=== PATIENT | female | born 1945 | race Caucasian/White ===

== ENCOUNTER 2016-10-12 23:42 | Emergency (ER) | payer OTHER ==
[2016-10-12 23:56] VITALS: BP 154/70; PULSE 87; TEMP 98.2; BMI 27.3
[2016-10-12] MEDS ORDERED: ONDANSETRON 4 MG/2 ML VIAL IVPB STA (23:56)
--- NOTE | 2016-10-12 23:56 | PDOC ---
History of Present Illness - History of Present Illness Initial Comments: 10/13/16 00:06 The patient is a 71 year old female with a past medical hx of breast cancer, left mastectomy (2013), hyperlipidemia, HTN, diabetes (insulin dependent), vertigo who presents to the ED complaining of nausea, headache, and dizziness for the past 10 days. The patients family states she saw her PCP for her symptoms and was given medication for her nausea and was referred to an ENT. The family notes she saw Dr. Newton today at his office. The patients family reports she had a tilt table test and her headache immediately worsened. The patient denies any vomiting, chest pain, SOB The patient denies any dysuria, fever, chills Social: No toxic habits reported Surgical: Mastectomy (2013) PCP: Dr. Arauz ENT: Dr. Newton <Rosalia Davis - Last Filed: 10/13/16 01:45> <Humera Garcia - Last Filed: 10/13/16 02:17> - General Chief Complaint: Weakness Stated Complaint: WEAKNESS Time Seen by Provider: 10/12/16 23:48 Past History <Rosalia Davis - Last Filed: 10/13/16 01:45> - Past Medical History Anemia: No Asthma: No Cancer: No Cardiac Disorders: No CVA: Yes ("TRANSIENT NUMBNESS RUE") COPD: No CHF: No Dementia: No Diabetes: Yes GI Disorders: No Disorders: No HTN: Yes Hypercholesterolemia: Yes Liver Disease: No Seizures: No Thyroid Disease: No - Surgical History Abdominal Surgery: No Appendectomy: No Cardiac Surgery: No Cholecystectomy: No Lung Surgery: No Neurologic Surgery: No Orthopedic Surgery: No - Psycho/Social/Smoking Cessation Hx Suicidal Ideation: No Smoking History: Never smoked Hx Alcohol Use: No Drug/Substance Use Hx: No Substance Use Type: None Hx Substance Use Treatment: No <Humera Garcia - Last Filed: 10/13/16 02:17> - Past Medical History Allergies/Adverse Reactions: Allergies Allergy/AdvReac Type Severity Reaction Status Date / Time Penicillins Allergy Severe Verified 08/01/14 12:56 Home Medications: Ambulatory Orders Amlodipine Bes/Olmesartan Med [Prakash 10-40 mg Tablet] 1 each PO DAILY 08/02/14 Aspirin [Aspirin EC] 81 mg PO DAILY 08/02/14 Atorvastatin Ca [Lipitor -] 20 mg PO HS 08/02/14 Dapagliflozin Propanediol [Farxiga] 5 mg PO DAILY 08/02/14 Furosemide [Lasix -] 20 mg PO DAILY 08/02/14 Insulin Lispro [Humalog] 25 unit SQ 08/02/14 Levothyroxine [Synthroid -] 25 mcg PO DAILY 08/02/14 Ranolazine [Ranexa] 500 mg PO DAILY 08/02/14 Review of Systems - Review of Systems Able to Perform ROS?: Yes Comments:: 10/13/16 00:07 CONSTITUTIONAL: Absent: fever, chills, diaphoresis, generalized weakness, malaise, loss of appetite HEENT: Absent: rhinorrhea, nasal congestion, throat pain, throat swelling, difficulty swallowing, mouth swelling, ear pain, eye pain, visual Changes CARDIOVASCULAR: Absent: chest pain, syncope, palpitations, irregular heart rate, lightheadedness , peripheral edema RESPIRATORY: Absent: cough, shortness of breath, dyspnea with exertion, orthopnea, wheezing, stridor, hemoptysis GASTROINTESTINAL: +Nausea. Absent: abdominal pain, abdominal distension, vomiting, diarrhea, constipation, melena, hematochezia GENITOURINARY: Absent: dysuria, frequency, urgency, hesitancy, hematuria, flank pain, genital pain MUSCULOSKELETAL: Absent: myalgia, arthralgia, joint swelling SKIN: Absent: rash, itching, pallor NEUROLOGIC: +Headache, dizziness. Absent: focal weakness or paresthesias, unsteady gait, seizure, mental status changes, bladder or bowel incontinence PSYCHIATRIC: Absent: anxiety, depression, suicidal or homicidal ideation, hallucinations. <Rosalia Davis - Last Filed: 10/13/16 01:45> *Physical Exam - Vital Signs Last Vital Signs Temp Pulse Resp BP Pulse Ox 98.2 F 87 18 154/70 95 10/12/16 23:53 10/12/16 23:53 10/12/16 23:53 10/12/16 23:53 10/12/16 23:53 - Physical Exam Comments: 10/13/16 00:08 GENERAL: Well developed, well nourished. Awake and alert. No acute distress. HEENT: Normocephalic, atraumatic. PERRLA, EOMI. No conjunctival pallor. Sclera are non- icteric. Moist mucous membranes. Oropharynx is clear. NECK: Supple. Full ROM. No JVD. Carotid pulses 2+ and symmetric, without bruits. No thyromegaly. No lymphadenopathy. CARDIOVASCULAR: Regular rate and rhythm. No murmurs, rubs, or gallops. Distal pulses are 2+ and symmetric. PULMONARY: +Good air movement. No evidence of respiratory distress. Lungs clear to auscultation bilaterally. No wheezing, rales or rhonchi. ABDOMINAL: Soft. Non-tender. Non-distended. No rebound or guarding. No organomegaly. Normoactive bowel sounds. MUSCULOSKELETAL Normal range of motion at all joints. No bony deformities or tenderness. No CVA tenderness. EXTREMITIES: +Bilateral lower extremity pitting edema. No cyanosis. No clubbing. No calf tenderness. SKIN: Warm and dry. Normal capillary refill. No rashes. No jaundice. NEUROLOGICAL: Alert, awake, appropriate. Cranial nerves 2-12 intact. No deficits to light touch and temperature in face, upper extremities and lower extremities. No motor deficits in the in face, upper extremities and lower extremities. PSYCHIATRIC: Cooperative. Good eye contact. Appropriate mood and affect. <Rosalia Davis - Last Filed: 10/13/16 01:45> - Vital Signs Last Vital Signs Temp Pulse Resp BP Pulse Ox 98.2 F 87 18 154/70 95 10/12/16 23:53 10/12/16 23:53 10/12/16 23:53 10/12/16 23:53 10/12/16 23:53 <Humera Garcia - Last Filed: 10/13/16 02:17> Heart Score/ECG Review - ECG Impressions Comment:: 10/13/16 01:33 EKG Sinus rhythm at a rate of 60 BPM with 1st degree AV block Low voltage QRS No change from prior <Rosalia Davis - Last Filed: 10/13/16 01:45> ED Treatment Course - LABORATORY CBC & Chemistry Diagram: 10/13/16 00:30 10/13/16 00:30 - RADIOLOGY Radiograph Interpretation: 10/13/16 01:45 EXAM: CT of the brain without contrast. There is no intra/extra-axial hemorrhage, vasogenic edema/focal mass effect or CT evidence of acute infarction; mild white matter presumed microvascular disease changes. No ventriculomegaly. The visualized portions of the paranasal sinuses, orbits and tympanomastoid cavities are unremarkable. Impression: no hemorrhage, gross acute infarct or mass. THIS DOCUMENT HAS BEEN ELECTRONICALLY SIGNED Edin Jordan MD 10/13/2016 01:07 EST <Rosalia Davis - Last Filed: 10/13/16 01:45> - LABORATORY CBC & Chemistry Diagram: 10/13/16 00:30 10/13/16 00:30 <Humera Garcia - Last Filed: 10/13/16 02:17> Medical Decision Making - Medical Decision Making 10/13/16 01:35 71 yo female came in w family because of increased occipital headache and vertigo. She has had these symptoms for 10 days but after having a tilt table teat today at the ENT office Dr Newton ,her NUNN became worse. she has a h/o vertigo and has taken meclizine before -she denies any facial droop.slurred speech,extremity numbness or visual changes ct scan head no acute intracranial pathology ekg is nsr @ 60 bpm with 1st degree AV block ,low voltage. No changes since her previous ekg on aug 02, 2014 pt has no fever,chills,chest pain,vomiting,visual changes,abd pain <Humera Garcia - Last Filed: 10/13/16 02:17> *DC/Admit/Observation/Transfer - Attestations Scribe Attestion: 10/13/16 00:09 Documentation prepared by Rosalia Davis, acting as medical concierge for Humera Garcia MD/DO. <Rosalia Davis - Last Filed: 10/13/16 01:45> <Humera Garcia - Last Filed: 10/13/16 02:17> Diagnosis at time of Disposition: Vertigo Headache Qualifiers: Headache type: unspecified Headache chronicity pattern: unspecified pattern Intractability: not intractable Qualified Code(s): R51 - Headache - Referrals Referrals: Renan Arauz [Primary Care Provider] - - Patient Instructions Printed Discharge Instructions: DI for Hormonal and Tension Headaches, DI for Benign Paroxysmal Positional Vertigo Additional Instructions: please followup with your regular physician
[2016-10-12] MEDS ORDERED: MECLIZINE HCL 25 MG TABLET (FP) PO ONE (23:57)
[2016-10-13] MEDS ORDERED: MECLIZINE HCL 25 MG TABLET (FP) ONE (00:33)
[2016-10-13] MEDS ORDERED: ONDANSETRON 4 MG/2 ML VIAL ONE (00:34)
[2016-10-13 01:16] LABS: BASOPHIL 0.6 % (0-2.0); EOSINOPHIL 3.2 % (0-4.5); MCH 31.2 pg (25.7-33.7); MCHC 33.6 g/dl (32.0-36.0); MEAN CELL VOLUME 92.7 fl (80-96); MEAN PLT VOLUME 9.9 fl (7.5-11.1); NEUTROPHILS 38.9 % (42.8-82.8); PLATELET COUNT 139 K/MM3 (134-434); RDW 13.5 % (11.6-15.6); WHITE BLOOD COUNT 7.2 K/mm3 (4.0-10.0)
[2016-10-13 01:26] LABS: INR 0.96 (0.82-1.09); PROTHROMBIN TIME (PATIENT) 10.5 SEC (9.98-11.88)
[2016-10-13] MEDS ORDERED: METOCLOPRAMIDE HCL INJECTION 10 MG/2 ML VIAL IVPB ONE (01:31)
[2016-10-13] MEDS ORDERED: METOCLOPRAMIDE HCL INJECTION 10 MG/2 ML VIAL ONE (01:58)
[2016-10-13 02:12] LABS: ANION GAP 8 (8-16); CALCIUM 8.8 mg/dL (8.5-10.1); CO2 27 mmol/L (21-32); CREATININE 0.9 mg/dL (0.55-1.02); GLUCOSE,RANDOM 180 mg/dL (74-106); SGOT/AST 16 U/L (15-37); SGPT/ALT 23 U/L (12-78)
[2016-10-13 02:15] LABS: ALK PHOS 140 U/L (45-117); BILIRUBIN,TOTAL 0.3 mg/dL (0.2-1.0); TOT PROT 7.5 g/dl (6.4-8.2); TROPONIN I < 0.02 ng/ml (0.00-0.05)
--- NOTE | 2016-10-13 03:20 | PDOC ---
*Physical Exam - Vital Signs Last Vital Signs Temp Pulse Resp BP Pulse Ox 98.2 F 87 18 154/70 95 10/12/16 23:53 10/12/16 23:53 10/12/16 23:53 10/12/16 23:53 10/12/16 23:53 ED Treatment Course - LABORATORY CBC & Chemistry Diagram: 10/13/16 00:30 10/13/16 01:31 - ADDITIONAL ORDERS Additional order review: Laboratory Results 10/13/16 10/13/16 10/13/16 01:31 01:31 00:30 INR Sodium 141 Cancelled Potassium 4.0 Cancelled Chloride 106 Cancelled Carbon Dioxide 27 Cancelled Anion Gap 8 Cancelled BUN 22 H D Cancelled Creatinine 0.9 D Cancelled Creat Clearance w eGFR > 60 Cancelled Random Glucose 180 H D Cancelled Calcium 8.8 Cancelled Total Bilirubin 0.3 D Cancelled AST 16 Cancelled ALT 23 D Cancelled Alkaline Phosphatase 140 H D Cancelled Creatine Kinase Cancelled 93 Cancelled Troponin I Cancelled < 0.02 Cancelled Total Protein 7.5 Cancelled Albumin 4.0 Cancelled 10/13/16 00:30 INR 0.96 Sodium Potassium Chloride Carbon Dioxide Anion Gap BUN Creatinine Creat Clearance w eGFR Random Glucose Calcium Total Bilirubin AST ALT Alkaline Phosphatase Creatine Kinase Troponin I Total Protein Albumin 10/13/16 00:30 RBC 4.33 MCV 92.7 MCHC 33.6 RDW 13.5 MPV 9.9 Neutrophils % 38.9 L Lymphocytes % 50.3 H Monocytes % 7.0 Eosinophils % 3.2 Basophils % 0.6 - Medications Given in the ED: ED Medications Discontinued Medications Generic Name Dose Route Start Last Admin Trade Name Paz PRN Reason Stop Dose Admin Diphenhydramine HCl 25 mg 10/13/16 01:32 10/13/16 02:20 Benadryl Injection - IVPB 10/13/16 01:33 25 mg ONCE ONE Administration Meclizine HCl 25 mg 10/12/16 23:57 10/13/16 00:37 Antivert - PO 10/12/16 23:58 25 mg ONCE ONE Administration Metoclopramide HCl 10 mg 10/13/16 01:31 10/13/16 02:20 Reglan Injection - IVPB 10/13/16 01:32 10 mg ONCE ONE Administration Ondansetron HCl 4 mg 10/12/16 23:56 03/01/17 00:37 Zofran Injection IVPB 10/12/16 23:57 4 mg ONCE STA Administration *DC/Admit/Observation/Transfer Diagnosis at time of Disposition: Vertigo Headache Qualifiers: Headache type: unspecified Headache chronicity pattern: unspecified pattern Intractability: not intractable Qualified Code(s): R51 - Headache - Discharge Dispostion Disposition: HOME Condition at time of disposition: Stable Admit: No - Prescriptions Prescriptions: Meclizine HCl 25 mg PO TID #30 tablet Ondansetron [Zofran *Odt*] 4 mg SL TID #30 od.tablet - Referrals Referrals: Renan Arauz [Primary Care Provider] - - Patient Instructions Printed Discharge Instructions: DI for Hormonal and Tension Headaches, DI for Benign Paroxysmal Positional Vertigo Additional Instructions: please followup with your regular physician - Post Discharge Activity
--- NOTE | 2016-10-13 13:59 | EKG ---
Test Reason : Blood Pressure : / mmHG Vent. Rate : 060 BPM Atrial Rate : 060 BPM P-R Int : 218 ms QRS Dur : 090 ms QT Int : 474 ms P-R-T Axes : 023 -25 011 degrees QTc Int : 474 ms SINUS RHYTHM WITH 1ST DEGREE A-V BLOCK LOW VOLTAGE QRS POSSIBLE ANTEROLATERAL INFARCT (CITED ON OR BEFORE 02-AUG-2014) ABNORMAL ECG WHEN COMPARED WITH ECG OF 02-AUG-2014 06:55, QT HAS SHORTENED Confirmed by GILBERT GOODSON, TERRY ([id number]) on 10/13/2016 1:58:42 PM Referred By: Confirmed By:TERRY HUNT MD
== END 2016-10-13 03:32 | disposition home or self-care (01) ==
LOC: JER 23:42
PROC: 3E033GC Introduction of Other Therapeutic Substance into Peripheral Vein, Percutaneous Approach (ICD-10-PCS; principal; 2016-10-12)
PROC: 3E033GC Introduction of Other Therapeutic Substance into Peripheral Vein, Percutaneous Approach (ICD-10-PCS; 2016-10-12)
DX: H81.10 Benign paroxysmal vertigo, unspecified ear (principal); Z79.4 Long term (current) use of insulin; E11.9 Type 2 diabetes mellitus without complications; E78.5 Hyperlipidemia, unspecified; Z86.73 Personal history of transient ischemic attack (TIA), and cerebral infarction without residual deficits; Z85.3 Personal history of malignant neoplasm of breast
CPT/HCPCS: 36415; 70450-TC; 71010-TC; 80053; 82550; 84484; 85025; 85610; 93005; 93010; 96374; 96375; 99281-25

== ENCOUNTER 2020-11-19 21:41 | Emergency (ER) | payer OTHER ==
[2020-11-19 22:10] VITALS: BMI 31.4
[2020-11-19] MEDS ORDERED: ACETAMINOPHEN 1000 MG/100 ML VIAL (NON FORMULARY) IVPB ONE (23:15)
[2020-11-19 23:21] LABS: EPI CELLS 5 /uL (0-25.1); HYALINE CASTS 0 /uL (0-3.1); URINE APPEARANCE CLEAR; URINE BACTERIA 11 /uL (0-1359); URINE BILIRUBIN NEGATIVE (NEGATIVE); URINE COLOR YELLOW; URINE GLUCOSE (UA) 3+ (NEGATIVE); URINE KETONE NEGATIVE (NEGATIVE); URINE LEUK ESTERASE NEGATIVE (NEGATIVE); URINE NITRITE NEGATIVE (NEGATIVE); URINE PROTEIN 2+ (NEGATIVE); URINE RBC 12 /uL (0-23.9); URINE UROBILINOGEN 0.2 mg/dL (0.2-1.0); URINE WBC 7 /uL (0-25.8)
[2020-11-19] MEDS ORDERED: ACETAMINOPHEN INJECTION 100 ML IVPB ONE (23:21)
[2020-11-19 23:44] LABS: BASO % 0.4 % (0-2.0); EOS % 1.3 % (0-4.5); HEMATOCRIT 39.4 % (32.4-45.2); HEMOGLOBIN 13.3 GM/dL (10.7-15.3); LYMPH % 39.3 % (8-40); MCH 31.2 pg (25.7-33.7); MCHC 33.8 g/dl (32.0-36.0); MEAN CELL VOLUME 92.1 fl (80-96); MEAN PLT VOLUME 9.3 fl (7.5-11.1); MONO % 8.4 % (3.8-10.2); NEUT % 50.6 % (42.8-82.8); PLATELET COUNT 202 K/MM3 (134-434); RBC 4.27 M/mm3 (3.60-5.2); RDW 13.9 % (11.6-15.6); WHITE BLOOD COUNT 10.7 K/mm3 (4.0-10.0)
[2020-11-19 23:50] LABS: INR 1.03 (0.83-1.09); PROTHROMBIN TIME (PATIENT) 12.4 SEC (9.7-13.0)
[2020-11-19 23:53] LABS: ACTIVATED PTT 29.1 SECONDS (25.2-36.5)
[2020-11-20 00:01] LABS: CHLORIDE 108 mmol/L (98-107); POTASSIUM 3.6 mmol/L (3.5-5.1); SODIUM 142 mmol/L (136-145)
[2020-11-20 00:03] LABS: CALCIUM 9.1 mg/dL (8.5-10.1)
[2020-11-20 00:04] LABS: ALBUMIN 3.7 g/dl (3.4-5.0); ANION GAP 7 MMOL/L (8-16); BLOOD UREA NITROGEN 19.5 mg/dL (7-18); CO2 28 mmol/L (21-32); GLUCOSE,RANDOM 57 mg/dL (74-106)
[2020-11-20 00:07] LABS: BILIRUBIN,TOTAL 0.5 mg/dL (0.2-1); CREATININE 0.8 mg/dL (0.55-1.3); SGOT/AST 21 U/L (15-37); SGPT/ALT 30 U/L (13-61); TOT PROT 7.7 g/dl (6.4-8.2)
[2020-11-20 00:09] LABS: ALK PHOS 115 U/L (45-117)
[2020-11-20 02:22] VITALS: BP 137/69; PULSE 67; TEMP 98.3
== END 2020-11-20 02:31 | disposition home or self-care (01) ==
LOC: JER 21:41
PROC: 3E0333Z Introduction of Anti-inflammatory into Peripheral Vein, Percutaneous Approach (ICD-10-PCS; principal; 2020-11-19)
DX: R10.31 Right lower quadrant pain (principal)
CPT/HCPCS: 36415; 74177-TC; 80053; 81003; 82550; 82962; 84484; 85025; 85610; 85730; 87086; 93005; 93010; 93926-TC; 99285-25; J0131